=== PATIENT | female | born 1955 | race Hispanic/Latino ===

== ENCOUNTER 2022-12-30 07:29 | Emergency (ER) | payer OTHER ==
[~2022-12-30] VITALS: Ht 162.6 cm; Wt 70.3 kg
[2022-12-30] MEDS ORDERED: DiphenhydrAMINE HCL 50 MG/ML VIAL IV ONE (08:30)
[2022-12-30] MEDS ORDERED: KETOROLAC 15MG/ML VIAL (15MG/ML) IV ONE (08:30)
[2022-12-30] MEDS ORDERED: METOCLOPRAMIDE 10 MG/2 ML VIAL IVP ONE (08:30)
[2022-12-30 08:42] LABS: HEMATOCRIT 42.2 % (36-48); MEAN CORPUSCULAR HEMOGLOBIN 30.1 pg (27.0-33.0); MEAN CORPUSCULAR HGB CONC 33.2 g/dL (32.0-36.0); MEAN CORPUSCULAR VOLUME 90.8 fL (79-99); PLATELET COUNT (AUTO) 228 K/uL (130-400); RED BLOOD CELL COUNT(AUTO) 4.65 MIL/uL (4.00-5.50); RED CELL DISTRIBUTION WIDTH 12.8 % (11.0-15.5); WHITE BLOOD COUNT (AUTO) 14.7 K/uL (4.8-10.8)
[2022-12-30 08:54] LABS: CREATININE 1.1 mg/dL (0.5-1.5)
[2022-12-30 09:02] LABS: BASOPHILS % (AUTO) 0.3 % (0.0-5.0); EOSINOPHILS % (AUTO) 0.3 % (0.0-8.0); LYMPHOCYTES % (AUTO) 9.9 % (21.0-51.0); MONOCYTES % (AUTO) 3.6 % (3.0-13.0); NEUTROPHILS % (AUTO) 85.5 % (40.0-77.0)
[2022-12-30 09:36] VITALS: BP 127/76
[2022-12-30] MEDS ORDERED: ASPI1TAB7 PO (10:01)
== END 2022-12-30 10:18 | disposition home or self-care (01) ==
LOC: EDH 07:29
DX: G43.009 Migraine without aura, not intractable, without status migrainosus (principal); R19.7 Diarrhea, unspecified; I10 Essential (primary) hypertension; E11.9 Type 2 diabetes mellitus without complications; Z79.1 Long term (current) use of non-steroidal anti-inflammatories (NSAID); Z88.2 Allergy status to sulfonamides
CPT/HCPCS: 99284; 96374; 96375; 80048; 85025; 36415; J1200; J2765; J1885

== ENCOUNTER → 2022-12-31 | Outpatient (CLI) | payer OTHER ==
[~2022-12-31] MED LIST: ASPI1TAB7 PO
[2022-12-31 15:33] LABS: CREATININE 1.2 mg/dL (0.5-1.5)
== END | disposition home or self-care (01) ==
LOC: EDUNIT# 10:00 → RAH 12:32
PROVIDERS: ATTEND Otolaryngology Plastic Surgery within the Head & Neck
DX: E04.1 Nontoxic single thyroid nodule (principal); Z79.899 Other long term (current) drug therapy; Z98.890 Other specified postprocedural states
CPT/HCPCS: 10005; 36415; 76942; 82565; 84520; 88173; 88305

== ENCOUNTER → 2023-01-26 | Outpatient (CLI) | payer OTHER | END | disposition home or self-care (01) | LOC: RAH 11:44 | PROVIDERS: ATTEND Internal Medicine | DX: J44.9 Chronic obstructive pulmonary disease, unspecified (principal) | CPT/HCPCS: 71046 ==

== ENCOUNTER 2023-02-05 05:53 | Observation (INO) | payer OTHER ==
[2023-02-02 16:13] LABS: BASOPHILS % (AUTO) 0.7 % (0.0-5.0); EOSINOPHILS % (AUTO) 2.7 % (0.0-8.0); LYMPHOCYTES % (AUTO) 30.7 % (21.0-51.0); MEAN CORPUSCULAR HGB CONC 32.8 g/dL (32.0-36.0); MEAN CORPUSCULAR VOLUME 91.3 fL (79-99); MONOCYTES % (AUTO) 7.9 % (3.0-13.0); NEUTROPHILS % (AUTO) 57.8 % (40.0-77.0); PLATELET COUNT (AUTO) 230 K/uL (130-400); RED BLOOD CELL COUNT(AUTO) 4.27 MIL/uL (4.00-5.50); RED CELL DISTRIBUTION WIDTH 12.7 % (11.0-15.5); WHITE BLOOD COUNT (AUTO) 8.1 K/uL (4.8-10.8)
[2023-02-02 16:24] LABS: CREATININE 1.2 mg/dL (0.5-1.5); POTASSIUM 4.4 mmol/L (3.5-5.1)
[2023-02-03 12:53] VITALS: BP 167/78
[~2023-02-05] VITALS: Ht 162.6 cm; Wt 72.4 kg
[2023-02-05] VITALS (23 sets, daily range): BP systolic 144–192; BP diastolic 51–96
[~2023-02-05 05:53] MED LIST changes: +ALLERGY RELIEF PO; +ASPI-1197 PO; -ASPI1TAB7 PO; +CALC-877 PO; +CITA10TA89 PO; +DULA1.5P SQ; +EZET10TA48 PO; +INSU500I SQ; +LOSA100T59 PO
[2023-02-05] MEDS ORDERED: 0.9%NACL 1000ML 1,000 ML IV ONE (06:55)
[2023-02-05] MEDS ORDERED: LIDOCAINE 1%-EPI 1:100,000 20 ML VIAL IJ SCH (07:00)
[2023-02-05] MEDS ORDERED: FAMOTIDINE 20MG VIAL IV ONE (07:06)
[2023-02-05] MEDS ORDERED: ROCURONIUM 10MG/1ML SYR 10 MG/ML ML ONE (07:09)
[2023-02-05] MEDS ORDERED: LIDOCAINE PF 100MG/5ML (2%) SYRINGE 5ML ONE (07:09)
[2023-02-05] MEDS ORDERED: GLYCOPYRROLATE 1 MG/5 ML SYRINGE ONE (07:09)
[2023-02-05] MEDS ORDERED: PROPOFOL 10 MG/ML 20ML VIAL IV ONE ×2 (07:09→08:39)
[2023-02-05] MEDS ORDERED: SUCCINYLCHOLINE CHLORIDE 20 MG/ML 10 ML VIAL ONE (07:21)
[2023-02-05] MEDS ORDERED: MUPIROCIN OINTMENT 22 GM TUBE TP SCH (07:30)
[2023-02-05] MEDS ORDERED: CEFAZOLIN SODIUM 2 GM VIAL IVPB ONE (07:30)
[2023-02-05] MEDS ORDERED: FENTANYL CITRATE PF 50 MCG/1 ML 2ML VIAL ONE ×3 (07:36→09:51)
[2023-02-05] MEDS ORDERED: MIDAZOLAM HCL 1 MG/ML 2ML VIAL ONE (07:36)
[2023-02-05] MEDS ORDERED: METOPROLOL TARTRATE 1 MG/ML 5ML VIAL IV ONE (07:52)
[2023-02-05] MEDS ORDERED: CEFAZOLIN SODIUM 1 GM VIAL ONE (07:55)
[2023-02-05] MEDS ORDERED: LIDOCAINE 1%-EPI 1:100,000 20 ML VIAL IJ ONE (07:57)
[2023-02-05] MEDS ORDERED: EPHEDRINE SULFATE 50 MG/ML AMPULE ONE (08:08)
[2023-02-05] MEDS ORDERED: ONDANSETRON 4MG INJ ONE ×2 (08:15→10:56)
[2023-02-05] MEDS ORDERED: LABETALOL 20MG VIAL IV ONE (09:35)
[2023-02-05] MEDS ORDERED: ACETAMINOPHEN WITH CODEINE 1 TAB TAB PO PRN (16:00)
[2023-02-05] MEDS ORDERED: NON-FORMULARY MEDICATION 1 EACH (Citalopram Hydrobromide (Citalopram HBr) 10 MG) PO PRN (16:00)
[2023-02-05] MEDS ORDERED: CEPHALEXIN 500 MG CAPSULE PO SCH (16:00)
[2023-02-05] MEDS ORDERED: DIPHENHYDRAMINE HCL 25 MG CAPSULE PO PRN ×2 (16:00→16:30)
[2023-02-05] MEDS: CEPHALEXIN 500 MG CAPSULE PO SCH ×2 (17:17→22:51)
[2023-02-05] MEDS: PHARMACY COMMUNICATION MISC SCH ×2 (17:30→21:30)
[2023-02-05] MEDS ORDERED: INSULIN HUMULIN R 100 UNIT/ML 3ML SQ SCH (21:00)
[2023-02-05] MEDS ORDERED: EZETIMIBE 10 MG TAB PO SCH (21:00)
[2023-02-05] MEDS ORDERED: DOCUSATE SODIUM 100 MG CAP PO SCH ×2 (21:00)
[2023-02-06] VITALS: BP 157/77
[2023-02-06] MEDS: PHARMACY COMMUNICATION MISC SCH ×3 (01:30→09:30)
[2023-02-06 04:00] VITALS: BP 149/62
[2023-02-06] MEDS: CEPHALEXIN 500 MG CAPSULE PO SCH ×2 (05:08→11:04)
[2023-02-06 08:00] VITALS: BP 131/64
[2023-02-06] MEDS ORDERED: ROCURONIUM 10MG/1ML SYR 10 MG/ML ML ONE (08:56)
[2023-02-06] MEDS ORDERED: [UNRECOGNIZED DRUG - REMARK] PO SCH (09:00)
[2023-02-06] MEDS ORDERED: LOSARTAN 100 MG TABLET PO SCH (09:00)
[2023-02-06] MEDS ORDERED: ASPIRIN 81MG CHEW TAB PO SCH (09:00)
[2023-02-06] MEDS ORDERED: INSULIN HUMULIN R 100 UNIT/ML 3ML SQ SCH (09:00)
[2023-02-06] MEDS ORDERED: CA 600MG+VIT D 400 UNIT TAB 1 TAB TABLET PO SCH (09:00)
[2023-02-06] MEDS ORDERED: PHARMACY COMMUNICATION MISC SCH ×2 (10:30)
[2023-02-06] MEDS ORDERED: CITALOPRAM 20 MG TABLET PO SCH (11:28)
[2023-02-06 12:00] VITALS: BP 144/49
[2023-02-06] MEDS ORDERED: [UNRECOGNIZED DRUG - REMARK] PO PRN (12:00)
[2023-02-12] MEDS ORDERED: ***HM***(Dulaglutide (Trulicity) 1.5 MG) SQ SCH (09:00)
== END 2023-02-06 13:35 | disposition home or self-care (01) ==
LOC: DAH 05:53 → DAHIP 05:54 → OBSVTOIN 05:54 → DAH 05:54 → INTOOBSV 05:54 → 3CH 16:00
PROVIDERS: ADMIT Otolaryngology; ATTEND Otolaryngology
DX: D34 Benign neoplasm of thyroid gland (principal); Z20.822 Contact with and (suspected) exposure to COVID-19; I10 Essential (primary) hypertension; E11.9 Type 2 diabetes mellitus without complications; K21.9 Gastro-esophageal reflux disease without esophagitis; Z79.899 Other long term (current) drug therapy
CPT/HCPCS: 80048; 85025; 87426; 36415; 93005; 60220; 96372; 82948 ×5; 88307; G0378 ×26; A4663; J3490 ×8; J3010 ×3; J0690 ×2; J0330; J7030; J2001; J2250; J2704; J2405 ×2; J1815; A4649 ×2; C1713 ×2; A4930; A4215; A4223; A4222; A4221; A4600